=== PATIENT | male | born 1950 | race Caucasian/White ===

== ENCOUNTER 2020-01-25 02:06 | Day surgery (SDC) | payer MEDICARE, SELFPAY ==
[2020-01-22 09:53] VITALS: BMI 44.2
[2020-01-25 07:56] VITALS: BP 127/67; PULSE 66; RESP 18; TEMP 36.6; O2SAT 99
[2020-01-25] MEDS: LACTATED RINGERS 1,000 ML 150 ML IV CONT (08:02)
--- NOTE | 2020-01-25 09:11 | WPDGICN ---
Assessment and Plan Additional Plan This is a 69-year-old white male patient I am asked to see at the request of Trell Harrington. He reports frequent belching and abdominal discomfort.Patient in general feels good is referred for evaluation of his colon. States his last colonoscopy was 5 years ago. He has a history of colon polyps. He denies any blood in his stools. His bowel habits are normal. He states that he avoids gluten because of concern over celiac disease bili. He denies having had recent blood test. Previous biopsy for celiac disease was negative by EGD in 2014. He also was told that he has irritable bowel syndrome and takes Colestiipol and yogurt with good results. Past medical history is significant for cholecystectomy in 2017. History of colon polyps by previous colonoscopy. Current medications include colestipol, ezetimibe, aspirin, fenofibrate, Lasix, losartan, melatonin, rosuvastatin, fish oil. No known medical allergies. Family history noncontributory. social history is significant for 4-5 beers on a daily basis. Physical exam reveals him to be alert. Oriented x3. Vital signs stable. HEENT exam unremarkable. Lungs are clear to auscultation and percussion. Heart is without murmur or extra sounds. Abdominal exam is somewhat obese. Bowel sounds present soft nontender with no organomegaly. Digital external rectal exam normal. Impression 1. Personal history of colon polyps. 2. Dyspepsia. History of gastritis and belching. This may be related to irritable bowel syndrome. 3. Irritable bowel syndrome. By history. Appears to improved with probiotics and Questran. 4. History of cholecystectomy. 5. Uncertain history of gluten sensitivity. Plan is for a trial of omeprazole 20 mg p.o. daily. A colonoscopy will be arranged to evaluate his history of colon polyps. GI Consult Note Consult date/time: 01/25/20 09:11 HPI: Alfonzo Dubon is a 69 year old male [facility] Family History Family History (Updated 04/13/19 @ 12:43 by DOCTOR UNKNOWN) Other Cerebrovascular accident Diabetes mellitus Family history of arthritis Family history of cardiovascular disease Family history of neuropathy Hypertension Social History Social History Smoking status: Light tobacco smoker Alcohol intake: never Meds Home Medications and Allergies Home Medications Medication Instructions Recorded Confirmed Type aspirin [Aspir-81] 81 mg PO DAILY 01/22/20 01/22/20 History cilostazol 50 mg PO BID 01/22/20 01/22/20 History coenzyme Q10 [Co Q-10] 100 mg PO DAILY 01/22/20 01/22/20 History colestipol [Colestid] 1 g PO BID 01/22/20 01/22/20 History ezetimibe 10 mg PO HS 01/22/20 01/22/20 History fenofibric acid (choline) 135 mg PO HS 01/22/20 01/22/20 History furosemide 40 mg PO QAM 01/22/20 01/22/20 History losartan 100 mg PO HS 01/22/20 01/22/20 History melatonin 5 mg PO HS 01/22/20 01/22/20 History metoprolol succinate 25 mg PO QAM 01/22/20 01/22/20 History omega 1-tan-oph-fish oil [Fish Oil] 1 cap PO DAILY 01/22/20 01/22/20 History potassium chloride 20 meq PO QAM 01/22/20 01/22/20 History rosuvastatin 40 mg PO QAM 01/22/20 01/22/20 History vit C,C-Wh-gczww-lutein-zeaxan 1 tablet PO QAM 01/22/20 01/22/20 History [PreserVision AREDS-2] Allergies Allergy/AdvReac Type Severity Reaction Status Date / Time No Known Allergies Allergy Unknown Verified 01/25/20 07:54 Vital Signs Vital Signs - 24 hr 01/25/20 07:56 Temperature 36.6 C Pulse Rate 66 Respiratory Rate 18 Blood Pressure 127/67 Pulse Oximetry 99
--- NOTE | 2020-01-25 09:32 | WPDANESEPPF ---
Anes - Initial Pre Proc Eval Procedure: Operation Date: 01/25/20 09:00 Proposed Procedures p Screening Colonoscopy - Monico Chapa MD Date/Time: 01/25/20 09:32 Surgeon: Monico Chapa MD Pre Op Diagnosis: hx colon polyp Patient Data Age: 69 Gender: M Height: 5 ft 9 in Weight: 134.7 kg Last Vital Signs Temp 97.8 F 01/25/20 07:56 Pulse 66 01/25/20 07:56 Resp 18 01/25/20 07:56 BP 127/67 01/25/20 07:56 Pulse Ox 99 01/25/20 07:56 Allergies Allergy/AdvReac Type Severity Reaction Status Date / Time No Known Allergies Allergy Unknown Verified 01/25/20 07:54 Home Medications Medication Instructions Recorded Confirmed Type aspirin [Aspir-81] 81 mg PO DAILY 01/22/20 01/22/20 History cilostazol 50 mg PO BID 01/22/20 01/22/20 History coenzyme Q10 [Co Q-10] 100 mg PO DAILY 01/22/20 01/22/20 History colestipol [Colestid] 1 g PO BID 01/22/20 01/22/20 History ezetimibe 10 mg PO HS 01/22/20 01/22/20 History fenofibric acid (choline) 135 mg PO HS 01/22/20 01/22/20 History furosemide 40 mg PO QAM 01/22/20 01/22/20 History losartan 100 mg PO HS 01/22/20 01/22/20 History melatonin 5 mg PO HS 01/22/20 01/22/20 History metoprolol succinate 25 mg PO QAM 01/22/20 01/22/20 History omega 3-ndr-fjo-fish oil [Fish Oil] 1 cap PO DAILY 01/22/20 01/22/20 History potassium chloride 20 meq PO QAM 01/22/20 01/22/20 History rosuvastatin 40 mg PO QAM 01/22/20 01/22/20 History vit C,M-Rp-dsvmp-lutein-zeaxan 1 tablet PO QAM 01/22/20 01/22/20 History [PreserVision AREDS-2] Patient hx anesthesia problems: none Family hx anesthesia problems: none [facility] Past Medical History Medical History (Updated 01/25/20 @ 09:36 by Dionisio Subramanian MD) CAD (coronary artery disease) Hyperlipidemia Hypertension GIULIANO (obstructive sleep apnea) Peripheral vascular disease Surgical History Surgical History (Updated 01/25/20 @ 09:36 by Dionisio Subramanian MD) Stented coronary artery Family History Family History (Updated 04/13/19 @ 12:43 by DOCTOR UNKNOWN) Other Cerebrovascular accident Diabetes mellitus Family history of arthritis Family history of cardiovascular disease Family history of neuropathy Hypertension Social History Social History Smoking status: Light tobacco smoker Alcohol intake: never Anes - Eval Final PreProcedure Day of Procedure 01/25/20 09:32 Patient weight: morbidly obese Heart: regular rate and rhythm Lungs: clear to auscultation Airway: Mallampati scale class III Neurological: alert and oriented Last oral intake: >/= 8 hours ASA classification: IV Emergent: no Anesthetic plan: proceed Anesthesia type and monitoring: general GIVS and standard monitoring Informed Consent: The patient's anesthetic plan and its attendant risks and benefits were discussed with the patient/family/POA. Questions were solicited and answers provided to the satisfaction of the patient/family/POA.
--- NOTE | 2020-01-25 09:38 | P.PNAN_ITS ---
Anes - Initial Pre Proc Eval Procedure: Operation Date: 01/25/20 09:00 Proposed Procedures p Screening Colonoscopy - Monico Chapa MD Date/Time: 01/25/20 09:38 Surgeon: Monico Chapa MD Pre Op Diagnosis: hx colon polyp Patient Data Age: 69 Gender: M Height: 5 ft 9 in Weight: 134.7 kg Last Vital Signs Temp 97.8 F 01/25/20 07:56 Pulse 66 01/25/20 07:56 Resp 18 01/25/20 07:56 BP 127/67 01/25/20 07:56 Pulse Ox 99 01/25/20 07:56 Allergies Allergy/AdvReac Type Severity Reaction Status Date / Time No Known Allergies Allergy Unknown Verified 01/25/20 07:54 Home Medications Medication Instructions Recorded Confirmed Type aspirin [Aspir-81] 81 mg PO DAILY 01/22/20 01/22/20 History cilostazol 50 mg PO BID 01/22/20 01/22/20 History coenzyme Q10 [Co Q-10] 100 mg PO DAILY 01/22/20 01/22/20 History colestipol [Colestid] 1 g PO BID 01/22/20 01/22/20 History ezetimibe 10 mg PO HS 01/22/20 01/22/20 History fenofibric acid (choline) 135 mg PO HS 01/22/20 01/22/20 History furosemide 40 mg PO QAM 01/22/20 01/22/20 History losartan 100 mg PO HS 01/22/20 01/22/20 History melatonin 5 mg PO HS 01/22/20 01/22/20 History metoprolol succinate 25 mg PO QAM 01/22/20 01/22/20 History omega 2-dkq-nmn-fish oil [Fish Oil] 1 cap PO DAILY 01/22/20 01/22/20 History potassium chloride 20 meq PO QAM 01/22/20 01/22/20 History rosuvastatin 40 mg PO QAM 01/22/20 01/22/20 History vit C,W-Ca-yeupe-lutein-zeaxan 1 tablet PO QAM 01/22/20 01/22/20 History [PreserVision AREDS-2] Patient hx anesthesia problems: none Family hx anesthesia problems: none [facility] Past Medical History Medical History (Updated 01/25/20 @ 09:36 by Dionisio Subramanian MD) CAD (coronary artery disease) Hyperlipidemia Hypertension GIULIANO (obstructive sleep apnea) Peripheral vascular disease Surgical History Surgical History (Updated 01/25/20 @ 09:36 by Dionisio Subramanian MD) Stented coronary artery Family History Family History (Updated 04/13/19 @ 12:43 by DOCTOR UNKNOWN) Other Cerebrovascular accident Diabetes mellitus Family history of arthritis Family history of cardiovascular disease Family history of neuropathy Hypertension Social History Social History Smoking status: Light tobacco smoker Alcohol intake: never Anes - Eval Final PreProcedure Day of Procedure 01/25/20 09:38 Patient weight: morbidly obese Heart: regular rate and rhythm Lungs: clear to auscultation Airway: Mallampati scale class III Neurological: alert and oriented Last oral intake: >/= 8 hours ASA classification: IV Emergent: no Anesthetic plan: proceed Anesthesia type and monitoring: general GIVS and standard monitoring Informed Consent: The patient's anesthetic plan and its attendant risks and benefits were discussed with the patient/family/POA. Questions were solicited and answers provided to the satisfaction of the patient/family/POA.
[2020-01-25 10:39] VITALS: BP 111/44; BP 80/53; PULSE 63; RESP 13; RESP 16; O2SAT 99
[2020-01-25 10:49] VITALS: BP 115/56; PULSE 61
[2020-01-25 10:59] VITALS: BP 112/56; PULSE 59; RESP 14; O2SAT 100
== END 2020-01-25 11:27 | disposition home or self-care (01) ==
PROVIDERS: Visit Provider Internal Medicine Gastroenterology
PROC: 0DJD8ZZ Inspection of Lower Intestinal Tract, Via Natural or Artificial Opening Endoscopic (ICD-10-PCS; CPT 45378; principal; 2020-01-25 09:00)
DX: Z12.11 Encounter for screening for malignant neoplasm of colon (principal); D12.3 Benign neoplasm of transverse colon; K57.30 Diverticulosis of large intestine without perforation or abscess without bleeding; K64.8 Other hemorrhoids; K58.9 Irritable bowel syndrome, unspecified; I25.10 Atherosclerotic heart disease of native coronary artery without angina pectoris; I10 Essential (primary) hypertension; E78.5 Hyperlipidemia, unspecified; G47.33 Obstructive sleep apnea (adult) (pediatric); I73.9 Peripheral vascular disease, unspecified; Z79.82 Long term (current) use of aspirin; Z95.5 Presence of coronary angioplasty implant and graft; Z72.0 Tobacco use; E66.01 Morbid (severe) obesity due to excess calories; Z68.41 Body mass index [BMI] 40.0-44.9, adult
CPT/HCPCS: 45385; 88305; J2704; J7120

== ENCOUNTER 2025-09-20 12:58 | Outpatient (CLI) | payer OTHER, SELFPAY ==
--- OUTSIDE RECORDS SUMMARY | 2023-08-17 06:49 | XMS_ITS | Encounter Summary ---
Author Organization [facility] Healthcare Address [address] [place] [address] Care Team Providers Care Clinical Recruiter Name Role Phone Trell Harrington MD Primary Care Provider [phone] Encounter Details Date Type Department Care Team (Late st Contact Info) Description 08/17/2023 7:49 AM CDT Hospital Encounter [facility] Medical Group Orthopedics and Sports Medicine [address] [place] [address] [place] [id number] Social History Tobacco Use Types Packs/Day Years Used Date Smoking Tobacco: Never Smokeless Tobacco: Never Sex and Gender Information Value Date Recorded Sex Assigned at Not on file Legal Sex Male 7:37 PM COMMERCIAL ESTIMATOR Gender Identity Male 10/28/2020 12:44 PM COMMERCIAL ESTIMATOR Sexual Orientation Bisexual 10/28/2020 12 :44 PM COMMERCIAL ESTIMATOR documented as of this encounter Functional Status * BP Location Answer Date of Assessment Author Right arm 03/06/2024 12:42 PM CDT Ml Lyons MA * BP Location Answer Date of Assessment Author Right arm 03/06/2024 12:42 PM CDT Ml Lyons MA documented as of this encounter Plan of Treatment Not on file documented as of this encounter Procedures Procedure Name Priority Date/Time Associated Diagnosis Comments XR KNEE RIGHT 4 OR MORE VIEWS Schedule Routine, Read Routine (OP Routine) 08/17/2023 2:42 PM CDT Right knee pain, unspecified chronicity documented in this encounter Results * XR Knee Right 4 or More Views (08/17/2023 2:42 PM CDT) Anatomical Region Laterality Modality Lower Extremities, Knee Right Digital Radiography Narrative 08/17/2023 4:05 PM CDT Weightbearing views of the right knee are reviewed and demonstrate no acute fractures or osseous changes. Tricompartmental degenerative changes present with joint space narrowing, osteophyte formation, and subchondral sclerosis. Bone on bone changes to the lateral compartment with valgus deformity Trell Bar ACCOUNT MANAGER EDUCATION IMG XR PROCEDURES Final Result documented in this encounter Visit Diagnoses Not on filedocumented in this encounter Care Teams Clinical Recruiter Relationship Specialty Start Date End Date Trell Harrington MD PCP - General 02/05/17 documented as of this encounter
--- OUTSIDE RECORDS SUMMARY | 2023-08-17 06:49 | XMS_ITS | Encounter Summary ---
Author Organization [facility] Healthcare Address [address] [place] [address] Care Team Providers Care Miner Helper Name Role Phone Trell Harrington MD Primary Care Provider [phone] Reason for Visit * Diagnostic Imaging (Routine) - Closed Specialty Diagnoses / Procedures Referred By Contac t Referred To Contact Diagnoses Right knee pain, unspecified chronicity Procedures XR Pelvis 1 or 2 Views Trell Bar NP [address] [place] [address] [address] [place] [address] Phone: tel: fax: Referral ID Status Reason Start Date Expiration Date Visits Re quested Visits Authorized [id number] Closed 08/17/2023 09/15/2024 1 1 Encounter Details Date Type Department Care Team (Late st Contact Info) Description 08/17/2023 7:49 AM CDT Hospital Encounter [facility] Medical Group Orthopedics and Sports Medicine [address] [facility] [address] [place] [id number] Social History Tobacco Use Types Packs/Day Years Used Date Smoking Tobacco: Never Smokeless Tobacco: Never Sex and Gender Information Value Date Recorded Sex Assigned at Not on file Legal Sex Male 7:37 PM FEDERAL AID COORDINATOR Gender Identity Male 10/28/2020 12:44 PM FEDERAL AID COORDINATOR Sexual Orientation Bisexual 10/28/2020 12 :44 PM FEDERAL AID COORDINATOR documented as of this encounter Functional Status [...] Name Priority Date/Time Associated Diagnosis Comments XR PELVIS 1 OR 2 VIEWS Schedule Routine, Read Routine (OP Routine) 08/17/2023 2:39 PM CDT Right knee pain, unspecified chronicity documented in this encounter Results * XR Pelvis 1 or 2 Views (08/17/2023 2:39 PM CDT) Anatomical Region Laterality Modality Body, Pelvis N/A Digital Radiogra phy Narrative 08/17/2023 4:05 PM CDT AP pelvis view today negative for fracture, dislocation or bony lesions. The joints are well maintained with mild OA noted. Trell Bar EDUCATION COURSES SALES REPRESENTATIVE IMG XR PROCEDURES Final Result documented in this encounter Visit Diagnoses Not on filedocumented in this encounter Care Teams Miner Helper Relationship Specialty Start Date End Date Trell Harrington MD PCP - General 02/05/17 documented as of this encounter
--- NOTE | ~2025-09-20 | XR_ITS ---
EXAM/PROCEDURE: XR UGIAC w barium swallow HISTORY: R13.10 - Dysphagia, unspecified, COMPARISON: None available. TECHNIQUE: Double contrast upper GI and esophagram performed. Note: Exam limited by suboptimal air contrast images. FINDINGS: Multiple tertiary contractions noted in the esophagus which is also somewhat tortuous and slightly patulous. A 1.3 cm barium pill was delayed in passage through the GE junction 4 approximately 20 minutes until it finally dissolved. No esophageal ulceration or mass seen. The stomach is poorly evaluated but no mass, or large ulceration. No extravasation of contrast. The duodenal bulb images are nondiagnostic. IMPRESSION: 1. Tortuous, patulous and irregular appearance of esophagus with tertiary contractions suggestive of esophagitis. There is also likely at least mild stricture at the GE junction where 1.3 cm barium pill would not pass until dissolved. 2. Nondiagnostic evaluation of the duodenal bulb. No large gastric or duodenal ulceration or extravasation of contrast seen. No evidence of obstruction. 3. Consider correlation with EGD for complete evaluation as clinically appropriate. Reviewed, dictated and finalized at location A. [employer]ER IMPRESSION: 1. Tortuous, patulous and irregular appearance of esophagus with tertiary contr actions suggestive of esophagitis. There is also likely at least mild stricture at the GE junction where 1.3 cm barium pill would not pass until dissolved. 2. Nondiagnostic evaluation of the duodenal bulb. No large gastric or duodenal ulceration or extravasation of contrast seen. No evidence of obstruction. 3. Consider correlation with EGD for complete evaluation as clinically appropri ate.
--- OUTSIDE RECORDS SUMMARY | 2025-09-20 13:42 | XMS_ITS | Clinical Summary ---
Author Organization [facility] Address [address] [place] [address] Care Team Providers Care Digital Marketing Consultant Name Role Phone Trell Harrington MD Primary Care Provider [phone] Allergies No known active allergies Medications aspirin 81 mg tablet take 1 tablet by oral route every day 0 0 4 Active colestipol (COLESTID) 1 gram tablet take 2 tablet by oral route 2 times every day swallowing whole with any liquid. Do not crush, chew and/or divide. 90 3 4 Active cholecalciferol (VITAMIN D-3) 2,000 unit tablet Active omeprazole (PriLOSEC) 20 mg capsule Take 1 capsule (20 mg total) by mouth daily Active fluticasone propionate (FLONASE) 50 mcg/actuation nasal spray 0 Active triamcinolone (KENALOG) 0.1 % cream APPLY TO RASH ON WRIST TWICE A DAY X4 WEEKS DON T APPLY TO FACE TAKE 2 WEEK BREAK BEFORE RESTARTING 0 Active chlorhexidine (PERIDEX) 0.12 % solution RINSE WITH 1 CAPFUL TWICE A DAY 0 Active tamsulosin (FLOMAX) 0.4 mg extended release capsule 1 Active UNABLE TO FIND OTC knee cream Active losartan (COZAAR) 100 mg tablet Take 1 tablet (100 mg total) by mouth daily 100 tablet 2 4 Active rosuvastatin (CRESTOR) 40 mg tablet Take 1 tablet (40 mg total) by mouth daily 100 tablet 2 4 Active metoprolol XL (TOPROL-XL) 25 mg extended release tablet Take 1 tablet (25 mg total) by mouth daily 100 tablet 2 4 Active cilostazoL (PLETAL) 50 mg tablet Take 1 tablet (50 mg total) by mouth 2 (two) times a day 200 tablet 3 4 Active ezetimibe (ZETIA) 10 mg tablet Take 1 tablet (10 mg total) by mouth daily 100 tablet 3 4 Active furosemide (LASIX) 40 mg tablet Take 1 tablet (40 mg total) by mouth daily 100 tablet 3 4 Active icosapent ethyL (VASCEPA) 1 gram capsule Take 2 capsules (2 g total) by mouth 2 (two) times a day 400 capsule 3 4 Active nitroglycerin (NITROSTAT) 0.[address] 1 tablet (0.4 mg total) under the tongue every 5 (five) minutes as needed for chest pain 100 tablet 1 4 Active potassium chloride ER 20 mEq CR tablet Take 1 tablet (20 mEq total) by mouth daily 100 tablet 3 4 Active Active Problems Problem Noted Date Diagnosed Date Morbid (severe) obesity due to excess calories 1 Mixed hyperlipidemia 02/11/2022 Benign neoplasm of scalp and skin of neck 2016 Claudication of right lower extremity 05/24/2017 Morbid obesity with BMI of 45.0-49.9, adult 05/08 Tobacco abuse 05/24/2017 S/P coronary artery stent placement 05/24/2017 Pre-syncope 11/18/2016 Overview (02/11/2017): Near syncope Morbid obesity 10/16/2015 Overview (02/11/2017): Morbid obesity with BMI of 40.0-44.9, adult Carotid artery disease 10/16/2015 Overview (02/11/2017): Carotid disease, bilateral Coronary artery disease invo lving [place] coronary artery of [place] heart without angina pectoris 10/16/2015 Overview (02/11/2017): Coronary artery disease involving [place] coronary artery of [place] heart without angina pectoris Hypertensive heart disease with congestive heart failure 10/16/2015 Overview (02/11/2017): Hypertensive heart disease with diastolic heart failure Presence of stent in coronary artery 05/02/2015 Overview (02/11/2017): S/P coronary artery stent placement Benign hypertension 05/08/2014 Overview (02/11/2017): HTN (hypertension), benign Dyspnea on exertion 05/08/2014 Overview (02/11/2017): LARSEN (dyspnea on exertion) GIULIANO on CPAP 05/08/2014 Overview (02/11/2017): GIULIANO on CPAP Atherosclerosis of coronary artery 05/08/2014 Overview (02/11/2017): CAD (coronary artery disease) Peripheral arterial occlusive disease 05/08/2014 Overview (02/11/2017): PAD (peripheral artery disease) Tobacco dependence syndrome 05/08/2014 Overview (02/11/2017): Tobacco abuse Resolved Problems Problem Noted Date Diagnosed Date Resolved Date Body mass index 40.0-44.9, adult ([facility]) 08/20/2022 09/01/2023 Dyslipidemia 05/08/2014 08/20/2022 Overview (02/11/2017): Dyslipidemia Surgical History Surgery Date Site/Laterality Comments CARDIAC CATHETERIZATION CORONARY ANGIOPLASTY Medical History Medical History Date Comments Hyperlipidemia Hypertension Coronary artery disease CHF (congestive heart failure) ([facility]) Family History Medical History Relation Name Comments Heart attack Father Myocardial infa rction; Hypertension Mother Hypertension; Relation Name Status Comments Father Mother Social History Tobacco Use Types Packs/Day Years Used Date Smoking Tobacco: Never Smokeless Tobacco: Never Tobacco Cessation:Counseling Given: Not Answered Sex and Gender Information Value Date Recorded Sex Assigned at Not on file Legal Sex Male 7:37 PM WHEEL BRAIDER Gender Identity Male 10/28/2020 12:44 PM WHEEL BRAIDER Sexual Orientation Bisexual 10/28/2020 12 :44 PM WHEEL BRAIDER Last Filed Vital Signs Vital Sign Reading Time Taken Comments Blood Pressure 122/66 03/06/2024 12:42 PM CDT Pulse 75 03/06/2024 12:42 PM CDT Temperature 36.4 C (97.5 F) 11/04/2020 10:54 AM WHEEL BRAIDER Respiratory Rate 16 09/01/2023 1:41 PM CDT Oxygen Saturation 98% 03/06/2024 12:42 PM CDT Inhaled Oxygen Concentration - - Weight 142.4 kg (314 lb) 03/06/2024 12:42 PM CDT Height 177.8 cm (5' 10) 03/06/2024 12:42 PM CDT Body Mass Index 45.05 03/06/2024 12:42 PM CDT Plan of Treatment Health Maintenance Due Date Last Done Comments Colon Cancer Screening-Colonoscopy 1950 Depression Screening 1950 Hepatitis C Screening 1950 DTaP/Tdap/Td Vaccine (1 - Tdap) 1962 Hepatitis B Screening 1969 Lung Cancer Screening 2001 Zoster Vaccine (1 of 2) 2001 Abdominal Aortic Aneurysm (A AA) Screen 2016 Well Visit 65+ 2016 Fall Risk Assessment 03/15/2019 03/15/2018 Influenza Vaccine (#1) 2025 9, 07/26/2018, 07/28/2017, Additional history exists Pneumococcal vaccine 65+ Completed 018, 07/31/2018, 07/27/2017 Prostate Cancer Screening-PSA Discontinued 02/10/2022 Procedures Procedure Name Priority Date/Time Associated Diagnosis Comments PSA SCREEN Routine 02/10/2022 10:17 AM CDT from Last 3 Months or Most Recently Relevant to Health Maintenance Results * PSA screen (02/10/2022 10:17 AM CDT) PSA-Total 1.50 <=6.20 ng/mL LITYZ GODINEZ Comment: Interpretive Data AGE SEX REFERENCE INTERVAL 0 minutes-150 years Female None 0 minutes-49 years Male None 50-59 years Male 0-3.90 60-69 years Male 0-5.40 70-79 years Male 0-6.20 80-150 years Male 0-6.20 Current interpretive data last revised 2018. Blood 02/10/2022 10:1 7 AM CDT 02/10/2022 3:07 PM CDT us Trell Harrington MD LAB BLOOD ORDERABLES Final Resu lt [id number] [id number] [address] Department of Laboratories [place] [phone] from Last 3 Months or Most Recently Relevant to Health Maintenance Insurance [facility] HMO REF [employer] CHOICE PPO Care Teams Digital Marketing Consultant Relationship Specialty Start Date End Date Trell Harrington MD PCP - General 02/05/17
--- OUTSIDE RECORDS SUMMARY | 2025-09-20 13:42 | XMS_ITS | Encounter Summary ---
Author Organization [facility] Address [address] [place] [address] Care Team Providers Care Highballer Name Role Phone Unavailable Primary Care Provider Unavailabl e Encounter Details Date Type Department Care Team (Late st Contact Info) Description 07/18/2024 Lab Requisition [facility] - DermPath Lab [address] [place] [id number] Drew Mcwilliams Jr., MD [address] [facility] [address] [place] [address] Social History Tobacco Use Types Packs/Day Years Used Date Smoking Tobacco: Never Assessed Sex and Gender Information Value Date Recorded Sex Assigned at Not on file Legal Sex Male 8:32 AM CDT Gender Identity Not on file Sexual Orientation Not on file documented as of this encounter Plan of Treatment Not on file documented as of this encounter Procedures Procedure Name Priority Date/Time Associated Diagnosis Comments DERMATOPATHOLOGY Routine 07/17/2024 12:0 0 AM CDT documented in this encounter Results * DERMATOPATHOLOGY (07/17/2024 12:00 AM CDT) Case Report Dermatopathology Report Case: [id number] Authorizing Provider: Drew Mcwilliams Jr., MD Collected: 07/17/2024 12:00 AM Ordering Location: [facility] - Received: 07/18/2024 11:49 AM DermPath Lab Pathologist: Janneth Swartz MD Specimen: Skin, right ulnar dorsal hand 4 2:18 PM CDT DERMATOPATHOLOGY LABORATORY Final Diagnosis Specimen A. SKIN, right ulnar dorsal hand: HEALING SKIN CHANGES (L90.5) 4 2:18 PM CDT DERMATOPATHOLOGY LABORATORY at 1418 CDT Clinical History Neoplasm of uncertain behavior vs LSC vs NMSC 2:18 PM CDT DERMATOPATHOLOGY LABORATORY Gross Description Specimen A: Received is one formalin filled container labeled with the patient's name and designated right ulnar dorsal hand. The specimen consists of a shave biopsy measuring 10x9x3 mm. Jar 0. 2:18 PM CDT DERMATOPATHOLOGY LABORATORY Microscopic Description Specimen A. SKIN, right ulnar dorsal hand: There is epidermal hyperplasia beneath which there are vascular proliferation, fibroblasts, and an edematous stroma. 2:18 PM CDT DERMATOPATHOLOGY LABORATORY Disclaimer An external and internal positive and negative controls are appropriate for the histochemical, immunohistochemical and immunofluorescence stain(s) in this case (if any), except where stated explicitly. The performance characteristics of the stain(s) cited in this report were developed and its performance characteristic determined by the Dermatopathology Laboratory at [facility], directed by Dr. Ernesto Miller. These tests need not be, and therefore are not, approved by the [place] Food and Drug Administration. The tests are used for clinical purposes. Billing Codes Specimen Charges Stain Charges 56196 1 4 2:18 PM CDT DERMATOPATHOLOGY LABORATORY Embedded Images 2:18 PM CDT DERMATOPATHOLOGY LABORATORY Pathology/Cytolog y TISSUE SPECIMEN FROM SKIN / Unknown 07/17/2024 07/18/2024 11:49 AM CDT Drew Mcwilliams Jr., MD LAB - PATHOLOGY/CYTOLOG Y ORDERABLES Final Result DERMATOPATHOLOGY LABORATORY [facility] - Department of Dermatology [address] [phone] documented in this encounter Visit Diagnoses Not on filedocumented in this encounter
--- OUTSIDE RECORDS SUMMARY | 2025-09-20 13:42 | XMS_ITS | Clinical Summary ---
Author Organization [facility] First Address [address] [place] [address] Care Team Providers Care Tab Machine Operator Name Role Phone Trell Harrington MD Primary Care Provider [phone] Allergies Active Allergy Reactions Criticality Noted Date Comments Gluten Unknown 08/18/2024 Medications cholecalciferol , Vitamin D3, 50 mcg (2,000 unit) Tablet Active metoprolol succinate (TOPROL XL) 25 mg Extended Release 24 hour tablet Take 25 mg by mouth daily. 4 Active nitroglycerin (NITROSTAT) 0.4 mg Tablet, Sublingual Place 0.4 mg under tongue. 4 Active omeprazole (PriLOSEC) 20 mg Capsule, Delayed Release(E.C.) Take 20 mg by mouth daily. Active potassium chloride (KLOR-CON) 20 mEq Extended Release tablet Take 20 mEq by mouth daily. 4 Active rosuvastatin (CRESTOR) 40 mg tablet Take 40 mg by mouth daily. 4 Active tamsulosin (FLOMAX) 0.4 mg capsule 1 Active aspirin (ECOTRIN EC) 81 mg Tablet, Delayed Release (E.C.) Take 1 Tablet (81 mg) by mouth daily. 30 Tablet 4 Active clopidogreL (PLAVIX) 75 mg Tablet Take 1 Tablet (75 mg) by mouth daily. 90 Tablet 3 5 Active losartan (COZAAR) 25 mg tablet Take 3 Tablets (75 mg) by mouth daily. 270 Tablet 3 5 Active ezetimibe (ZETIA) 10 mg tablet Take 1 Tablet (10 mg) by mouth daily. 90 Tablet 3 5 Active icosapent ethyL (VASCEPA) 1 gram Capsule Take 2 Capsules (2 Grams) by mouth 2 times daily. 360 Capsule 3 5 Active colestipoL (COLESTID) 1 gram tablet Take 1 Gram by mouth 2 times daily. 5 Active furosemide (LASIX) 40 mg tablet Take 1 Tablet (40 mg) by mouth daily. 90 Tablet 1 5 Active furosemide (LASIX) 40 mg tablet Take 1 Tablet (40 mg) by mouth daily. 90 Tablet 2 5 09/04/20 Discontinu ed(Reorder ) Active Problems Patient Care Coordination No te Formatting of this note migh t be different from the original. Camera Technician Dr. Cami Horne Problem Noted Date Diagnosed Date Class 3 severe obesity due t o excess calories with serious comorbidity and body mass index (BMI) of 45.0 to 49.9 in adult 08/25/2024 Colloid cyst of brain 08/25/2024 Heart failure with preserved ejection fraction 0 05/24/2024 Drooling from right side of mouth 05/24/2024 Facial weakness 05/24/2024 Morbid (severe) obesity due to excess calories 1 Mixed hyperlipidemia 02/11/2022 Benign neoplasm of scalp and skin of neck 2016 Claudication of right lower extremity 05/24/2017 S/P coronary artery stent placement 05/24/2017 Tobacco abuse 05/24/2017 Pre-syncope 11/18/2016 Overview (05/19/2024): Near syncope Carotid artery disease 10/16/2015 Overview (05/19/2024): Carotid disease, bilateral Hypertensive heart disease with congestive heart failure 10/16/2015 Overview (05/19/2024): Hypertensive heart disease with diastolic heart failure Presence of stent in coronary artery 05/02/2015 Overview (05/19/2024): S/P coronary artery stent placement Coronary artery disease invo lving [place] coronary artery of [place] heart without angina pectoris 05/08/2014 Overview (05/19/2024): CAD (coronary artery disease) Coronary artery disease involving [place] coronary artery of [place] heart without angina pectoris Benign hypertension 05/08/2014 Overview (05/19/2024): HTN (hypertension), benign Dyspnea on exertion 05/08/2014 Overview (05/19/2024): LARSEN (dyspnea on exertion) GIULIANO on CPAP 05/08/2014 Overview (05/19/2024): GIULIANO on CPAP Peripheral arterial occlusive disease 05/08/2014 Overview (12/19/2024): 12/19/24 S/p drug coated balloon angioplasty of the distal right SFA. Encounters Date Type Department Care Team Description 09/10/2025 11:00 AM CANCELING AND CUTTING CONTROL CLERK - 09/10/2025 11:45 AM [facility] Surgery [facility] Junior Recruiter [address] [place] [address] Lalo Nicole MD Aorta iliac femoral angiography 09/10/2025 9:49 AM CANCELING AND CUTTING CONTROL CLERK - 09/10/2025 3:22 PM [facility] Hospital Encounter [facility] [place] [address] [place] [address] Lalo Nicole MD Peripheral vascular disease, unspecified Discharge Disposition: Home or Self Care 09/04/2025 External Device Data STL ABSTRACTION Provider, Abstract 09/04/2025 Refill [facility] [address] [place] [address] Farooq Almanza MD 08/28/2025 Prep for Surgery [facility] [address] [place] [address] Farooq Almanza MD PAD (peripheral artery disease) (Primary Dx) 08/27/2025 2:00 PM CDT Office Visit [facility] [address] [place] [address] Farooq Almanza MD Coronary artery disease involving [place] coronary artery of [place] heart without angina pectoris (Primary Dx); Chronic heart failure with preserved ejection fraction (HFpEF) (CMS/HCC); Claudication in peripheral vascular disease; Benign hypertension; Mixed hyperlipidemia; GIULIANO on CPAP; Class 3 severe obesity due to excess calories with serious comorbidity and body mass index (BMI) of 45.0 to 49.9 in adult (CMS/HCC); S/P coronary artery stent placement 08/17/2025 Refill [facility] [address] [place] [address] Farooq Almanza MD 07/31/2025 Results Follow-Up [facility] [address] [place] [address] Farooq Almanza MD US ARTERIAL W SEGMENTAL PRESS LOWER EXT 07/25/2025 2:49 PM CDT - 07/25/2025 11:59 PM CDT Hospital Encounter [facility] [address] [place] [address] Farooq Almanza MD Discharge Disposition: Home or Self Care 07/02/2025 1:15 PM CDT Office Visit [facility] [address] [place] [address] Farooq Almanza MD Coronary artery disease involving [place] coronary artery of [place] heart without angina pectoris (Primary Dx); Claudication in peripheral vascular disease; Chronic heart failure with preserved ejection fraction (CMS/HCC); Benign hypertension; Mixed hyperlipidemia; GIULIANO on CPAP; Tobacco abuse; Class 3 severe obesity due to excess calories with serious comorbidity and body mass index (BMI) of 45.0 to 49.9 in adult ([facility]); S/P coronary artery stent placement from Last 3 Months Family History Medical History Relation Name Comments Heart Disease Father Tony Dubon Heart Surgery Father Tony Dubon Hypertension Father Tony Dubon Other Father Tony Dubon tobacco use Valvular Heart Disease Father Tony Dubon Other Mother Sun Dubon tobacco use Heart Attack Paternal Grandfather HRG Heart Disease Paternal Grandfather HRG Heart Disease Paternal Grandmother Wanda Dubon Stroke Paternal Grandmother Wanda Dubon Diabetes Sister Andreia Odonnell Relation Name Status Comments Father Tony Dubon Mother Sun Dubon Paternal Grandfather HRG Paternal Grandmother Wanda Dubon Sister Andreia Oodnnell Social History Tobacco Use Types Packs/Day Years Used Date Smoking Tobacco: Former Cigars Q uit: 06/2024 Tobacco Cessation:Counseling Given: Not Answered Alcohol Use Standard Drinks/Week Comments Yes 14 (1 standard drink = 0.6 oz pu re alcohol) daily Feeling Safe Answer Date Recorded Are you in a relationship wi th someone who hurts you emotionally and/or physically? No 09/10/2025 Food Insecurity Answer Date Recorded Patient needs follow up regardin 03/01/2025 Transportation Needs Answer Date Record ed Patient needs follow up regardin 03/01/2025 Housing Stability Answer Date Recorded Social/Environmental Concerns No concerns Utility Needs Answer Date Recorded Patient needs follow up regardin 03/01/2025 Sex and Gender Information Value Date Recorded Sex Assigned at Male 09/23/2024 2:13 PM CANCELING AND CUTTING CONTROL CLERK Legal Sex Male 11:03 AM CDT Gender Identity Male 09/23/2024 2:13 PM CANCELING AND CUTTING CONTROL CLERK Sexual Orientation Straight 09/23/2024 2: 13 PM CANCELING AND CUTTING CONTROL CLERK Last Filed Vital Signs Vital Sign Reading Time Taken Comments Blood Pressure 114/56 09/10/2025 3:00 PM CANCELING AND CUTTING CONTROL CLERK Pulse 58 09/10/2025 2:30 PM CANCELING AND CUTTING CONTROL CLERK Temperature 36.6 C (97.8 F) 09/10/2025 10:13 AM CANCELING AND CUTTING CONTROL CLERK Respiratory Rate 17 09/10/2025 3:00 PM CANCELING AND CUTTING CONTROL CLERK Oxygen Saturation 100% 09/10/2025 2:30 PM CANCELING AND CUTTING CONTROL CLERK Inhaled Oxygen Concentration - - Weight 146.5 kg (323 lb) 09/10/2025 10:13 AM CANCELING AND CUTTING CONTROL CLERK Height 172.7 cm (5' 8) 09/10/2025 10:13 AM CANCELING AND CUTTING CONTROL CLERK Body Mass Index 49.11 09/10/2025 10:13 AM CANCELING AND CUTTING CONTROL CLERK Plan of Treatment Upcoming Encounters Date Type Department Care Team (Late st Contact Info) Description 09/24/2025 10:45 AM CANCELING AND CUTTING CONTROL CLERK Office Visit [facility] [address] [place] [address] Farooq Almanza MD [address] [place] [address] 11/05/2025 2:15 PM CANCELING AND CUTTING CONTROL CLERK Office Visit [facility] [address] [place] [address] Farooq Almanza MD [address] [place] [address] Health Maintenance Due Date Last Done Comments COLORECTAL SCREENING 1996 Colorectal Cancer Screening 1996 FIT-DNA Q 3 years 1996 FIT/FOBT Q 1 year 1996 Flex Sig/CT Colonography Q 5 years 1996 RSV VACCINE (60+ or ) (1 - Risk 50-74 years 1-dose series) 2001 Abdominal Aortic Aneurysm (A AA) Screening 2016 ZOSTER VACCINE (2 of 2) 01/03/2020 11/08/2019 INFLUENZA VACCINE (#1) 2025 2, 08/18/2022, 09/23/2021, Additional history exists DTAP/TDAP/TD VACCINES (2 - T d or Tdap) 11/20/2029 11/20/2019 PNEUMOCOCCAL VACCINE 50+ YEARS Completed 0 08/01/2018, 07/31/2018, 07/28/2017, Additional history exists Medical Devices Implanted Type Area Rod Buster Helper Device Identifier Shelf Expiration Date Model / Serial / Lot Dev Closure Angioseal 6fr Vip [id number] - [id number] Implanted:Qty : 1 on 12/19/2024 by Lalo Nicole MD at [facility] Closure Device Left: Groin TERUMO- CARDIOVASC SYS [id number] 07/20/2025 [id number] / / [id number] Stent Vasc Beckie [id number] - [id number] Implanted:Qty : 1 on 09/10/2025 by Lalo Nicole MD at [facility] Stent Right: Superficial Femoral Artery [email or web address] RAFAELA [id number] 02/20/2027 [id number] / / [id number] Procedures Procedure Name Priority Date/Time Associated Diagnosis Comments PERIPHERAL ARTERY INTERVENTION Routine 09/10/2025 12:18 PM CANCELING AND CUTTING CONTROL CLERK Peripheral vascular disease, unspecified Weakness of both lower extremities AORTA ILIAC FEMORAL ANGIOGRAPHY Routine 09/10/2025 12:18 PM CANCELING AND CUTTING CONTROL CLERK Peripheral vascular disease, unspecified Weakness of both lower extremities BASIC METABOLIC PANEL Stat 09/10/2025 9:55 AM CANCELING AND CUTTING CONTROL CLERK CBC WITH DIFFERENTIAL Stat 09/10/2025 9:55 AM CANCELING AND CUTTING CONTROL CLERK US ARTERIAL W SEGMENTAL PRESS LOWER EXT Routine 07/25/2025 3:44 PM CDT Claudication in peripheral vascular disease LIPID PANEL Routine 07/02/2025 1:16 PM CDT Mixed hyperlipidemia from Last 3 Months Results * AORTA ILIAC FEMORAL ANGIOGRAPHY, PERIPHERAL ARTERY INTERVENTION (09/10/2025 12:18 PM CANCELING AND CUTTING CONTROL CLERK) 09/10/2025 11:4 1 AM CANCELING AND CUTTING CONTROL CLERK Narrative [facility] [address] - 09/10/2025 12:48 PM CANCELING AND CUTTING CONTROL CLERK Significant stenosis in the distal right SFA and proximal right popliteal artery stented with one 6 x 120 mm stent postdilated with a 6 mm balloon. Procedure Details Peripheral Catheterization Report 09/10/2025 Patient: Alfonzo Dubon : 1950 Physician: Napoleon Nicole MD Reason for procedure: Alfonzo Dubon is a 74 y.o.male Pre-Procedure Diagnosis: Peripheral Arterial Disease with claudication Procedures Performed: Abdominal Aortography with runoff of the right lower extremity Conscious sedation with physician supervision Ultrasound guided arterial access Second order catheter placement (catheter was placed from L common femoral to right superficial femoral artery) Angioplasty and stenting of the right SFA and popliteal artery with a 6 x 120mm stent Procedure: After informed consent was obtained, the patient was taken to the cardiac catheterization laboratory in a fasting state and placed on the table in the supine position. Monitoring equipment was affixed to the patient including a pulse oxymeter and non-invasive blood pressure cuff in order to maintain regular surveillance of vital signs. The areas of the femoral vessels were prepped and draped in sterile fashion. Ultrasound-guided access to the common femoral artery was obtained and a 6-Bhutanese sheath was inserted. Abdominal aortography with bilateral lower extremity run-off was performed using a diagnostic catheter, crossover performed with omni-flush catheter and a 0.035 wire, and the catheter was placed in the contralateral superficial femoral artery (second order). Moderate sedation was administered throughout the entire procedure under my direct supervision. Patient tolerated well the procedure. There were no complications. Access Sites: Left Common Femoral Artery, 6-Bhutanese Abdominal aorta: No aneurysm, dissection, or stenosis Right lower extremity: Iliac arteritis are patent Distal right SFA 80% stenosis and second 80% stenosis in the proximal right popliteal artery. Percutaneous Peripheral Intervention: The lesion was dilated with a 6 mm balloon, followed by placement of a self- expanding 6 x 120 mm stent, deployed into the distal SFA and proximal popliteal arteries. This was postdilated with a 6 mm balloon to 12 yoli pressure with excellent result and 0% residual stenosis Estimated blood loss: Less than 25 ml Complications: None Impression/Plan: Significant stenosis in the distal right SFA and proximal right popliteal artery stented with one 6 x 120 mm stent postdilated with a 6 mm balloon. Napoleon Nicole MD, 09/10/2025 12:42 PM Procedural Indications Claudication us Lalo Nicole MD CUP CATH ORDERABLES Final Result [facility] [address] LAY# [id number] [place] [address] * (ABNORMAL) CBC WITH DIFFERENTIAL (09/10/2025 9:55 AM CANCELING AND CUTTING CONTROL CLERK) [facility] WBC 4.8 4.0 - 9.8 K/uL 09/10/2025 10:24 AM CANCELING AND CUTTING CONTROL CLERK [facility] [place] Comment:ANC = 2.95K/uL RBC 4.28(L) 4.50 - 5.40 M/uL 09/10/2025 10:24 AM [facility] [place] HEMOGLOBIN 13.4(L) 13.6 - 16.5 g/dL 09/10/2025 10:24 AM [facility] [place] HEMATOCRIT 40.2 40.0 - 48.0 % 09/10/2025 10:24 AM [facility] [place] MCV 93.9 82.0 - 99.0 fL 09/10/2025 10:24 AM [email or web address] [place] MCH 31.3 27.2 - 32.6 pg 09/10/2025 10:24 AM [email or web address] [place] MCHC 33.3 31.5 - 35.5 g/dL 09/10/2025 10:24 AM [email or web address] [place] RDW 14.4 11.5 - 14.5 % 09/10/2025 10:24 AM [email or web address] [place] RDW-STDEV 49.1(H) 37.1 - 48.7 fL 09/10/2025 10:24 AM [email or web address] [place] PLATELETS 168 140 - 350 K/uL 09/10/2025 10:24 AM [email or web address] [place] MPV 10.0 9.3 - 12.4 fL 09/10/2025 10:24 AM [facility] [place] NEUTROPHILS 61 % 09/10/2025 10:24 AM [facility] [place] LYMPHOCYTES 27 % 09/10/2025 10:24 AM [facility] [place] MONOCYTES 8 % 09/10/2025 10:24 AM [facility] [place] EOSINOPHILS 2 % 09/10/2025 10:24 AM [facility] [place] BASOPHILS 1 % 09/10/2025 10:24 AM [facility] [place] IMMATURE GRANULOCYTES 0 % 09/10/2025 10:24 AM [email or web address] NEUTROPHIL ABSOLUTE 2.95 1.90 - 7.00 K/uL 09/10/2025 10:24 AM [facility] [employer] [facility] LYMPHOCYTE ABSOLUTE 1.28 0.70 - 4.50 K/uL 09/10/2025 10:24 AM [facility] [employer] [facility] MONOCYTE ABSOLUTE 0.40 0.10 - 1.30 K/uL 09/10/2025 10:24 AM [facility] [employer] [facility] EOSINOPHIL ABSOLUTE 0.10 0.00 - 0.70 K/uL 09/10/2025 10:24 AM [facility] [employer] [facility] [place] BASOPHILS ABSOLUTE 0.06 0.00 - 0.20 K/uL 09/10/2025 10:24 AM [facility] [employer] SERVICES [facility] IMMATURE GRANULOCYTES ABSOLUTE 0.01 0.00 - 0.03 K/uL 09/10/2025 10:24 AM [facility] [employer] [facility] Blood Venipuncture / Unknown 09/10/2025 9:55 AM CANCELING AND CUTTING CONTROL CLERK 09/10/2025 10:21 AM CANCELING AND CUTTING CONTROL CLERK us Lalo Nicole MD HEMATOLOGY ORDERABLES Daysi l Result [facility] [employer] [facility] CLIA# [id number] [address] [place] [address] * (ABNORMAL) BASIC METABOLIC PANEL (09/10/2025 9:55 AM CANCELING AND CUTTING CONTROL CLERK) SODIUM 138 136 - 145 mmol/L 09/10/2025 10:45 AM [facility] [employer] [facility] POTASSIUM 4.2 3.5 - 4.9 mmol/L 09/10/2025 10:45 AM CANCELING AND CUTTING CONTROL CLERK [employer] [facility] CHLORIDE 103 98 - 107 mmol/L 09/10/2025 10:45 AM [facility] [employer] [facility] CO2 25 22 - 29 mmol/L 09/10/2025 10:45 AM [facility] [employer] [facility] CALCIUM 9.3 8.6 - 10.2 mg/dL 09/10/2025 10:45 AM [facility] [employer] [facility] BUN 15 6 - 20 mg/dL 09/10/2025 10:45 AM [facility] CREATININE 1.08 0.67 - 1.17 mg/dL 09/10/2025 10:45 AM [facility] Comment:The GFR result is no t clinically significant on patients <18 or >70 years of age. GLUCOSE 109(H) 74 - 99 mg/dL 09/10/2025 10:45 AM [facility] GFR >60 mL/min/1.7 3 sq meter 09/10/2025 10:45 AM [facility] Comment:eGFR calculated with 2020 CKD-EPI equation. Vegetarian diet, extremely high or low muscle mass, and may affect results. Cystatin C with Glomerular Filtration Rate is a suitable alternative for these patients. ANION GAP 10 8 - 16 mmol/L 09/10/2025 10:45 AM [facility] Blood Venipuncture / Unknown 09/10/2025 9:55 AM CANCELING AND CUTTING CONTROL CLERK 09/10/2025 10:21 AM [facility] us Lalo Nicole MD CHEMISTRY ORDERABLES Final Result [facility] CLIA# [id number] [address] [place] [id number] * US ARTERIAL W SEGMENTAL PRESS LOWER EXT (07/25/2025 3:44 PM CDT) Anatomical Region Laterality Modality Lower Extremity Ultrasound 07/25/2025 2:52 PM CDT Narrative 07/31/2025 11:15 AM CDT [place] [place] [address] [email or web address] Ankle-Brachial Index Study Patient: Alfonzo Dubon Gary Study ID: 1 Gender: M : 1950 Age: 74 Race: CAU Height Study Date: 07/25/2025 Weight: Access. #: [id number] *Referring Physician:Farooq Carrillo Walter *Ordering Physician:* Farooq AlmanzaAirplane Dispatch Clerk:Magy Gomez Indications: See worksheet. Study data: Study status: Routine. Procedure: A vascular evaluation was performed. Image quality was good. Multi-level lower extremity arterial segmental pressures and Doppler waveforms were performed. Ankle-brachial index. Continuous wave Doppler and ankle-brachial index. Birthdate: Patient birthdate: 1950. Age: Patient is 74year(s) old. Sex: gender: male. Study date: Study date: 07/25/2025. Study time: 02:52 PM. Location: Vascular laboratory. Patient status: Outpatient. Impressions 1. No evidence of arterial insufficiency in the bilateral lower extremities at rest. 2. Exercise deferred due to patient inability to perform the exercise safely. Arterial evaluation findings: Right: Right ROSY: 1.04. This is within the normal range at rest. Left: Left ROSY: 1.26. This is within the normal range at rest. Tables: Ankle brachial indices: +---+---+--+----+---+----+----+---+-------+---+---+--+-----+---+----+----+---+ !R !R !R !R !R !R DP!R !R !Brachia!L !L !L !L Toe!L !L DP!L !L ! !PT !DP !Pe!Toe !PT !inde!Angi!Toe!l !PT !DP !Pe! !PT !inde!Angi!Toe! ! ! !ro! !ind!x !inde!ind! ! ! !ro! !ind!x !inde!ind! ! ! ! ! !ex ! !x !ex ! ! ! ! ! !ex ! !x !ex ! +---+---+--+----+---+----+----+---+-------+---+---+--+-----+---+----+----+---+ !149!139!10!80mm!1.0!0.97!0.73!0.5!143mm !180!156!15!103mm!1.2!1.09!1.11!0.7! ! ! !5 !Hg !4 ! ! !6 !Hg ! ! !9 !Hg !6 ! ! !2 ! +---+---+--+----+---+----+----+---+-------+---+---+--+-----+---+----+----+---+ *Pressures are expressed in mm Hg Volume pulse table: + + + !Segment !Doppler ! + + + !R femoral !Multiphasic! + + + !R popliteal!Multiphasic! + + + !R PT !Multiphasic! + + + !R DP !Multiphasic! + + + !R peroneal !Monophasic ! + + + !L femoral !Multiphasic! + + + !L popliteal!Multiphasic! + + + !L PT !Multiphasic! + + + !L DP !Multiphasic! + + + !L peroneal !Multiphasic! + + + *Pressures are expressed in mm Hg Prepared and Electronically Authenticated Monico Garcia [id number] Procedure Note Monico Garcia MD - 07/31/[address] [address] [email or web address] Ankle-Brachial Index Study Patient: Alfonzo Dubon Study ID: 1 Gender: M : 1950 Age: 74 Race: [facility] Height Study Date: 07/25/2025 Weight: Access. #: [id number] *Referring Physician:* Farooq Almanza Walter *Ordering Physician:* Farooq AlmanzaAirplane Dispatch Clerk:* Magy Harding Indications: See worksheet. Study data: Study status: Routine. Procedure: A vascular evaluationwas performed. Image quality was good. Multi-level lower extremity arterial segmental pressures and Doppler waveforms were performed.Ankle-brachial index. Continuous wave Doppler and ankle-brachial index. Birthdate: Patient birthdate: 1950. Age: Patient is 74year(s) old. Sex: gender: male. Study date: Study date: 07/25/2025. Study time: 02:52PM. Location: Vascular laboratory. Patient status: Outpatient. Impressions 1. No evidence of arterial insufficiency in the bilateral lowerextremities at rest. 2. Exercise deferred due to patient inability to perform the exercisesafely. Arterial evaluation findings: Right: Right ROSY: 1.04. This is within the normal range at rest. Left: Left ROSY: 1.26. This is within the normal range at rest. Tables: Ankle brachial indices: +---+---+--+----+---+----+----+---+-------+---+---+--+-----+---+----+----+---+ !R !R !R !R !R !R DP!R !R !Brachia!L !L !L !L Toe!L !L DP!L!L ! !PT !DP !Pe!Toe !PT !inde!Angi!Toe!l !PT !DP !Pe! !PT!inde!Angi!Toe! ! ! !ro! !ind!x !inde!ind! ! ! !ro! !ind!x!inde!ind! ! ! ! ! !ex ! !x !ex ! ! ! ! ! !ex ! !x!ex ! +---+---+--+----+---+----+----+---+-------+---+---+--+-----+---+----+----+---+ !149!139!10!80mm!1.0!0.97!0.73!0.5!143mm!180!156!15!103mm!1.2!1.09!1.11!0.7! ! ! !5 !Hg !4 ! ! !6 !Hg ! ! !9 !Hg !6 ! !!2 ! +---+---+--+----+---+----+----+---+-------+---+---+--+-----+---+----+----+---+ *Pressures are expressed in mm Hg Volume pulse table: + + + !Segment !Doppler ! + + + !R femoral !Multiphasic! + + + !R popliteal!Multiphasic! + + + !R PT !Multiphasic! + + + !R DP !Multiphasic! + + + !R peroneal !Monophasic ! + + + !L femoral !Multiphasic! + + + !L popliteal!Multiphasic! + + + !L PT !Multiphasic! + + + !L DP !Multiphasic! + + + !L peroneal !Multiphasic! + + + *Pressures are expressed in mm Hg Prepared and Electronically Authenticated Monico Garcia [id number] us Farooq Almanza MD ORDERABLES Final Re sult * (ABNORMAL) LIPID PANEL (07/02/2025 1:16 PM CDT) [facility] CHOLESTEROL 141 <200 mg/dL Shalini mii-S madelyn Reyna HDL 45 > OR = 40 mg/dL Shalini Shea-Real Reyna TRIGLYCERIDE 196(H) <150 mg/dL Shalini Reyna LDL CALCULATED 69 mg/dL (calc) Shalini mii-Real Reyna Comment: Reference range: <100 Desirable range <100 mg/dL for primary prevention; <70 mg/dL for patients with CHD or diabetic patients with > or = 2 CHD risk factors. LDL-C is now calculated using the Miguelina calculation, which is a validated novel method providing better accuracy than the Friedewald equation in the estimation of LDL-C. Óscar SS et al. ROBIN. 2013;310(19): 0794-2351 (http://education.[employer].Erly/faq/EYP486) CHOL/HDL RATIO 3.1 <5.0 (calc) Izooble madelyn Reyna NON-HDL CHOLESTEROL 96 <130 mg/dL (calc) Izooble madelyn Reyna Comment: For patients with diabetes plus 1 major ASCVD risk factor, treating to a non-HDL-C goal of <100 mg/dL (LDL-C of <70 mg/dL) is considered a therapeutic option. Test Performed at: [facility] [id number] [address] [place] [id number] Christine Garcia Blood 07/02/2025 1:16 PM CDT 07/02/2025 11:17 PM CDT us Farooq Almanza MD CHEMISTRY ORDERABLES Fin al Result [facility] [phone] [facility] [address] [address] [place] [phone] from Last 3 Months Insurance [facility] Advance Directives For more information, please contact: [phone] * Full Code (Latest Code Status on File) Date Activated Date Inactivated Comments 09/10/2025 9:54 AM 09/10/2025 5:22 PM * Full Code Date Activated Date Inactivated Comments 12/19/2024 9:53 AM 12/19/2024 5:50 PM Care Teams Tab Machine Operator Relationship Specialty Start Date End Date Trell Harrington MD [address] [place] [id number] PCP - General Family Practice 08/25/24
--- OUTSIDE RECORDS SUMMARY | 2025-09-20 13:42 | XMS_ITS | Clinical Summary ---
Author Organization [facility] Address [address] [place] [address] Care Team Providers Care Dental Office Manager Name Role Phone Unavailable Primary Care Provider Unavailabl e Source Comments [facility],non-owned Affiliates and Associated Physician Practices is amultiple site organization consisting of ambulatory clinics and hospital sitesin [place], [place], [place] and [place]. This disclosure is being madepursuant to the Care Everywhere program and may not contain all information available regarding this patient. Last updated 18.[facility] Social History Tobacco Use Types Packs/Day Years Used Date Smoking Tobacco: Never Assessed Sex and Gender Information Value Date Recorded Sex Assigned at Not on file Legal Sex Male 8:32 AM CDT Gender Identity Not on file Sexual Orientation Not on file Plan of Treatment Health Maintenance Due Date Last Done Comments COLOGUARD (AGES 45-75) - COL ON CA SCREENING 1951 COLON MONITORING 1951 COLONOSCOPY - COLON CA SCREENING 1951 CT COLONOGRAPHY - COLON CA SCREENING 1950 Colorectal Cancer Screening 1951 FIT - COLON CA SCREENING 1951 FLEX SIG - COLON CA SCREENING 1951 LIPID TESTING 1951 HEPATITIS C SCREENING 12/18/1969 DTAP/TDAP/TD VACCINES (1 - Tdap) 1970 PNEUMOCOCCAL VACCINE 50+ (1 of 1 - PCV) 2001 ZOSTER VACCINE (1 of 2) 2001 DEPRESSION SCREENING 11/08/2024 MEDICARE AWV CALENDAR YEAR 2024 COVID-19 VACCINE (1 - 2023-2 5 season) 2025 INFLUENZA VACCINE (#1) 2025 Respiratory Syncytial Virus (RSV) Vaccine Pt: or over 60 yrs (1 - 1-dose 75+ series) 2026 HEPATITIS B VACCINE Aged Out No longe r eligible based on patient's age to complete this topic HIB VACCINE Aged Out No longer eligi ble based on patient's age to complete this topic HPV VACCINE Aged Out No longer eligi ble based on patient's age to complete this topic MENINGOCOCCAL (Group B) VACC INE SHARED DECISION-MAKING Aged Out No longer eligibl e based on patient's age to complete this topic MENINGOCOCCAL GROUPS A/C/Y/W VACCINE Aged Out No longer eligible b ased on patient's age to complete this topic Insurance [employer] MANAGED MEDICARE ADV MEDICARE AET [facility] MEDICARE [facility] Care Address: [facility] [address] [place] [address]
== END 2025-09-20 12:59 | disposition home or self-care (01) ==
PROVIDERS: Visit Provider Nurse Practitioner Family
DX: R13.10 Dysphagia, unspecified (principal); K21.9 Gastro-esophageal reflux disease without esophagitis
CPT/HCPCS: 74246